=== PATIENT | female | born 1950 | race African-American/Black ===

== ENCOUNTER 2019-07-20 10:38 | Emergency (ER) | payer OTHER ==
[~2019-07-20] VITALS: Ht 162.6 cm; Wt 59.0 kg
[2019-07-20 12:23] LABS: HEMATOCRIT 31.4 % (37.0-47.0); HEMOGLOBIN 10.7 gm/dL (12.0-15.0); MCH 36.8 pg (26.0-34.0); MCV 108.3 fL (80.0-100.0); RDW 15.5 % (10.5-14.5); WBC 5.8 thou/uL (4.0-11.0)
[2019-07-20 12:37] LABS: ANION GAP 15 mmol/L (7-16); BUN 18 mg/dL (7-18); CALCIUM 9.3 mg/dL (8.5-10.1); CHLORIDE 103 mmol/L (98-107); CO2 22 mmol/L (21-32); CREATININE 1.2 mg/dL (0.6-1.0); GLUCOSE 69 mg/dL (74-106); POTASSIUM 4.3 mmol/L (3.5-5.1); SODIUM 140 mmol/L (136-145)
[2019-07-20 12:40] LABS: INR 1.2
[2019-07-20 12:42] LABS: ALBUMIN 3.4 g/dL (3.4-5.0); SGOT 263 U/L (15-37); SGPT 135 U/L (30-65); TOTAL PROTEIN 6.5 g/dL (6.4-8.2); TROPONIN-I <0.06 ng/mL (<0.06)
[2019-07-20] MEDS ORDERED: OMEPRAZOLE40 MG PO (12:55)
[2019-07-20] MEDS ORDERED: LATANOPROST 0.2.5 ML OPHTHALMIC (12:56)
[2019-07-20] MEDS ORDERED: SERTRALINE HCL100 MG PO (12:56)
[2019-07-20] MEDS ORDERED: NEURONTIN 300300 M1 PO (12:56)
[2019-07-20] MEDS ORDERED: ACAMPROSATE CA333 MG PO (12:56)
[2019-07-20 13:25] LABS: ABSOLUTE NEUTROPHILS 4.1 thou/uL (1.4-8.2)
[2019-07-20 13:26] LABS: ANISOCYTOSIS 2+; MACROCYTES 1+; PLATELET COUNT 81 thou/uL (150-400)
[2019-07-20 14:36] VITALS: BP 115/68
--- NOTE | 2019-07-20 17:11 | EKG ---
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: ANNA MARIE : 1950 Requested By: Jeremias Florez Order Number: [id number] MD: Bon Solorzano Measurements Intervals [place] Rate: 79 P: 69 IN: 155 QRS: 44 QRSD: 94 T: 38 QT: 384 QTc: 441 Interpretive Statements Sinus rhythm Anteroseptal infarct, age indeterminate Baseline wander in lead(s) V1 No previous ECG available for comparison Electronically Signed On 07-20-2019 17:10:45 KENNEL AIDE by Bon Solorzano [email or web address] <ELECTRONICALLY SIGNED> By: Bon Solorzano MD, [facility] 07/20/19 1710 1051 52 Bon Solorzano MD, FACC /EPI
== END 2019-07-20 14:36 | disposition short-term general hospital (02) ==
LOC: ER 10:38
PROVIDERS: Physician Assistant
DX: S02.612A Fracture of condylar process of left mandible, initial encounter for closed fracture (principal); S00.83XA Contusion of other part of head, initial encounter; S20.219A Contusion of unspecified front wall of thorax, initial encounter; H11.33 Conjunctival hemorrhage, bilateral; M54.9 Dorsalgia, unspecified; F32.9 Major depressive disorder, single episode, unspecified; F10.10 Alcohol abuse, uncomplicated; Z79.899 Other long term (current) drug therapy; W19.XXXA Unspecified fall, initial encounter; Y93.K1 Activity, walking an animal; Y92.89 Other specified places as the place of occurrence of the external cause; Y99.8 Other external cause status